=== PATIENT | male | born 1970 | race Caucasian/White ===

== ENCOUNTER 2016-08-08 00:56 | Emergency (ER) | payer BC, OTHER ==
[~2016-08-08] VITALS: Ht 180.3 cm; Wt 127.9 kg
[~2016-08-08 00:56] MED LIST: FLUO10CA48 PO
[2016-08-08 01:03] VITALS: TEMP 36.6; Ht 180.3 cm; Wt 127.9 kg
[2016-08-08] MEDS ORDERED: ASPIRIN 81 MG CHEW PO STA (01:25)
[2016-08-08 01:27] VITALS: O2SAT 97
[2016-08-08 01:32] LABS: BASO % 0.4 %; BASO ABS # 0.03 K/uL (0-0.2); COMPLETE YES; EOS % 1.9 %; HEMATOCRIT 43.7 % (42-52); IG% 0.1 %; LYMPH % 42.3 %; LYMPH ABS # 2.96 K/uL (1.2-3.4); MEAN CORPUSCULAR HEMOGLOBIN 29.8 pg (25-34); MEAN CORPUSCULAR HGB CONC 35.5 g/dl (32-36); MEAN PLATELET VOLUME 10.1 fL (7.4-10.4); MONO % 7.7 %; NEUT % 47.6 %; PLATELET COUNT 208 K/uL (130-400); WHITE BLOOD COUNT 6.99 K/uL (4.8-10.8)
[2016-08-08 01:42] LABS: BUN/CREATININE RATIO 12.7 (10-20); CALCIUM 9.2 mg/dl (8.5-10.1); CREATININE 1.5 mg/dl (0.60-1.40)
--- NOTE | 2016-08-08 04:08 | EMERGENCY ROOM VISIT NOTE ---
History First contact with patient: 01:07 Chief Complaint: CARDIAC ASSESSMENT Stated Complaint: TIGHTNESS IN CHEST,WEIRD FEELING IN RT ARM/SHOUDER Nursing Triage Summary: prior to arrival patient woke up with right sided chest tightness. patient was shoveling snow and also slept on right side but patient states this doest no feel like muscle soreness. pain began at 0030. History of Present Illness The patient is a 45 year old male who presents to the Emergency Room with complaints of chest pain that raised his right shoulder since 12:30 AM that woke him up out of sleep he was nauseous and sweaty with this. The pain is now resolved after being in the ER. He describes it as a funny feeling in his chest. His dad had a heart attack in his 70s. Patient smokes. He uses a vaporizer. Patient denies prior heart disease, hypertension, diabetes, high cholesterol. He does not routinely exercise. He does walk with no difficulties. Patient denies abdominal pain, dyspnea, leg pain or swelling, recent travel, vomiting, diarrhea, numbness, tingling. No recent illness. No injury to the area. Nothing makes the pain better or worse. It is now resolved. Review of Systems See HPI for pertinent positives & negatives. A total of 10 systems reviewed and were otherwise negative. Past Medical/Surgical History Kidney stones Social History Smoking Status: Current Some Day Smoker Drug Use: none Marital Status: Housing Status: lives with family Occupation Status: employed Current/Historical Medications Scheduled Fluoxetine (Prozac), 10 MG PO DAILY Allergies Coded Allergies: No Known Allergies (Unverified , 04/19/11) Physical Exam Vital Signs Date Time Temp Pulse Resp B/P Pulse Ox O2 Delivery O2 Flow Rate FiO2 08/08/16 02:30 55 20 113/68 97 Room Air 08/08/16 01:27 97 Room Air 08/08/16 01:27 97 Room Air 08/08/16 01:22 55 08/08/16 01:16 95 Room Air 08/08/16 01:03 36.6 61 18 136/85 97 Room Air Physical Exam VITALS: Vitals are noted on the nurse's note and reviewed by myself. Vital signs stable. GENERAL: Pleasant male, in no acute distress, nondiaphoretic, well-developed well-nourished. SKIN: The skin was without rashes, erythema, edema, or bruising. There is no tenting of the skin. Capillary reflex less than 2 seconds. HEAD: Normocephalic atraumatic. EARS: External auditory canals clear, tympanic membranes pearly cao without erythema or effusion bilaterally. EYES: Pupils equal round and reactive to light and accommodation. Conjunctivae without injection, sclerae without icterus. Extraocular movements intact. NOSE: Patent, turbinates without inflammation or discharge. MOUTH: Mucous membranes moist. Pharynx without erythema or exudate. Uvula midline. Airway patent. Tongue does not deviate. NECK: Supple without nuchal rigidity. No lymphadenopathy. No thyromegaly. Cervical spine is nontender. No JVD. HEART: Regular rate and rhythm without murmurs gallops or rubs. Chest nontender to palpation LUNGS: Clear to auscultation bilaterally without wheezes, rales or rhonchi. No dullness to percussion. No retractions or accessory muscle use. ABDOMEN: Positive bowel sounds x 4. Normal tympanic percussion. Soft, nontender, without masses or organomegaly. Manning sign negative. No guarding or rebound tenderness. MUSCULOSKELETAL: No muscle atrophy, erythema, or edema noted. NEURO: Patient was alert and oriented to person place and time. Normal sensation to light and sharp touch. No focal neurological deficits. Medical Decision & Procedures Laboratory Results 08/08/16 01:16 Red Blood Count 5.20, Mean Corpuscular Volume 84.0, Mean Corpuscular Hemoglobin 29.8, Mean Corpuscular Hemoglobin Concent 35.5, Mean Platelet Volume 10.1, Neutrophils (%) (Auto) 47.6, Lymphocytes (%) (Auto) 42.3, Monocytes (%) (Auto) 7.7, Eosinophils (%) (Auto) 1.9, Basophils (%) (Auto) 0.4, Neutrophils # (Auto) 3.32, Lymphocytes # (Auto) 2.96, Monocytes # (Auto) 0.54, Eosinophils # (Auto) 0.13, Basophils # (Auto) 0.03 08/08/16 01:16 Test 08/08/16 01:16 08/08/16 03:26 White Blood Count 6.99 K/uL (4.8-10.8) Red Blood Count 5.20 M/uL (4.7-6.1) Hemoglobin 15.5 g/dL (14.0-18.0) Hematocrit 43.7 % (42-52) Mean Corpuscular Volume 84.0 fL (80-100) Mean Corpuscular Hemoglobin 29.8 pg (25-34) Mean Corpuscular Hemoglobin Concent 35.5 g/dl (32-36) Platelet Count 208 K/uL (130-400) Mean Platelet Volume 10.1 fL (7.4-10.4) Neutrophils (%) (Auto) 47.6 % Lymphocytes (%) (Auto) 42.3 % Monocytes (%) (Auto) 7.7 % Eosinophils (%) (Auto) 1.9 % Basophils (%) (Auto) 0.4 % Neutrophils # (Auto) 3.32 K/uL (1.4-6.5) Lymphocytes # (Auto) 2.96 K/uL (1.2-3.4) Monocytes # (Auto) 0.54 K/uL (0.11-0.59) Eosinophils # (Auto) 0.13 K/uL (0-0.5) Basophils # (Auto) 0.03 K/uL (0-0.2) RDW Standard Deviation 41.7 fL (36.4-46.3) RDW Coefficient of Variation 13.5 % (11.5-14.5) Immature Granulocyte % (Auto) 0.1 % Immature Granulocyte # (Auto) 0.01 K/uL (0.00-0.02) Anion Gap 7.0 mmol/L (3-11) Est Creatinine Clear Calc Drug Dose 84.7 ml/min Estimated GFR () 64.2 Estimated GFR (Non- 55.4 BUN/Creatinine Ratio 12.7 (10-20) Calcium Level 9.2 mg/dl (8.5-10.1) Total Bilirubin 0.3 mg/dl (0.2-1) Direct Bilirubin 0.1 mg/dl (0-0.2) Aspartate Amino Transf (AST/SGOT) 16 U/L (15-37) Alanine Aminotransferase (ALT/SGPT) 34 U/L (12-78) Alkaline Phosphatase 59 U/L (45-117) Total Protein 7.2 gm/dl (6.4-8.2) Albumin 3.9 gm/dl (3.4-5.0) Lipase 489 U/L (73-393) Bedside Troponin I 0.000 ng/ml (0-0.045) Medications Administered Medications (Trade) Dose Ordered Sig/Bridget Route Start Time Stop Time Status Last Admin Dose Admin Aspirin (Aspirin Chew) 324 mg NOW STAT PO 08/08/16 01:25 08/08/16 01:27 DC 08/08/16 01:30 324 MG ED Course Prior records/ancillary studies reviewed. Triage Nursing notes reviewed. Additional history obtained from family The patient's history was concerning for chest pain. Differential diagnosis: Etiologies such as cardiac ischemia, aortic dissection, pulmonary embolism, pneumonia, pneumothorax, musculoskeletal, infections, pericarditis, myocarditis , esophageal rupture, gastrointestinal, as well as others were entertained. Physical examination: As above. ER treatment provided: Aspirin On reassessment the patient felt better. Diagnostic interpretation by me: The electrocardiogram was negative for pathologic change. Normal sinus, normal intervals, T wave inversion in lead 3, normal axis, rate of 55. Impression sinus bradycardia interpreted by myself The labs revealed 2 troponins that are negative 2 hours apart. Mildly elevated glucose. Elevated creatinine 1.5 Imaging studies: Chest x-ray with no acute consolidation or pneumothorax free air per my interpretation Exam and history seem consistent with precordial chest pain. Patient declined admission. He had 2 troponins that were negative 2 hours apart. Patient was strongly encouraged to cardiology this week for further evaluation and workup for his chest pain. He was informed that we cannot rule out a heart attack or heart disease by today's testing. He understands the risks involved. He was advised avoid strenuous activity and to see cardiology on Tuesday or here in the ER sooner for chest pain, further workup, worsening signs or symptoms or as needed.By the evaluation outlined above emergent etiologies such as aortic dissection, pulmonary embolism, pneumonia, pneumothorax, infections, pericarditis, myocarditis, gastrointestinal, as well as others were deemed relatively unlikely. The pt informed about the findings as listed above. All questions were answered and pleased with the treatment. Return instructions were outlined and the patient was discharged in stable condition. Referral: The patient was referred back to cardiology and primary care physician for follow-up in 2 to 3 days for a recheck of the current condition. Case reviewed with my attending Medical Decision As above Impression Primary Impression: Precordial chest pain Departure Information Dispostion Home / Self-Care Condition GOOD Referrals Jojo Bryant D.O. (PCP) Patient Instructions My [facility] Additional Instructions Recommend that you stop smoking and using the vaporizer. Ibuprofen(Motrin, Advil) may be used for fever or pain. Use 600mg every six hours as needed. Take with food. Avoid using more than 2400mg in a 24 hour period. Do not use 2400mg per day for more than three consecutive days without physician direction. Prolonged inappropriate use can lead to stomach upset or ulcers. (AND/OR) Acetaminophen(Tylenol) may be used for fever or pain. Use 1000mg every six hours as needed. Avoid using more than 3000mg in a 24 hour period. Rest and drink plenty of fluids as tolerated. Continue current medications. Avoid strenuous activities until cleared by your family care doctor. Return to the ER immediately for worsening or persistent chest pain, abdominal pain, vomiting, fevers, chest pains, difficulty breathing, worsening of your condition, or as needed. Follow up with your primary physician and cardiology in 2-3 days for a recheck of your current condition.
[2016-08-08 04:19] VITALS: BP 116/79; PULSE 56; O2SAT 98
--- NOTE | 2016-08-08 06:39 | DIAGNOSTIC IMAGING REPORT ---
CHEST ONE VIEW PORTABLE CLINICAL HISTORY: CHEST PAIN dyspnea COMPARISON STUDY: No previous studies for comparison. FINDINGS: Mild cardia megaly. Mild prominence of pulmonary vasculature. No focal infiltrate. IMPRESSION: Pulmonary vascular congestion. Electronically signed by: Zachary Bueno M.D. 08/08/2016 6:38 AM Dictated Date/Time: 08/08/2016 6:37 AM
== END 2016-08-08 04:16 | disposition home or self-care (01) ==
LOC: C.EDB 00:57
DX: R07.2 Precordial pain (principal); F17.200 Nicotine dependence, unspecified, uncomplicated; Z87.442 Personal history of urinary calculi

== ENCOUNTER 2017-08-04 15:50 | Emergency (ER) | payer OTHER ==
[~2017-08-04] VITALS: Ht 180.3 cm; Wt 127.0 kg
[2017-08-04 16:08] VITALS: Ht 180.3 cm; Wt 127.0 kg
--- NOTE | 2017-08-04 19:21 | DIAGNOSTIC IMAGING REPORT ---
LOWER EXT NONJOINT WITHOUT HISTORY: 46 years-old Male Left ankle/lower leg pain and abnormality/possible Achilles tear acute mid calf pain status post injury COMPARISON: None available TECHNIQUE: Multiplanar multisequence MRI of the left lower leg were obtained without the use of IV contrast. FINDINGS: There is a moderate degree of intramuscular edema with a feathery appearance within the distal aspect of the medial head gastrocnemius near the myotendinous junction nicely seen on image 8 of series 13 and image 19 of series 9. Mild edema seen tracks along the adjacent myofascial borders. No focal intramuscular fluid collection or intrinsic T1 hyperintensity identified. No discrete muscle tear identified. Imaged lateral head gastrocnemius and Soleus musculature appear unremarkable and intact. The plantaris tendon is not well seen. The Achilles tendon appears intact and is unremarkable. Trace fluid within the retrocalcaneal bursa. Study is not tailored to assess the intrinsic structures of the ankle. 6 mm osteochondral defect involves the medial talar dome, image 14 of series 12. Bone marrow edema is otherwise unremarkable without evidence of acute fracture. Imaged flexor and extensor tendons appear unremarkable. IMPRESSION: 1. Moderate intramuscular and perimuscular edema of the distal aspect medial head gastrocnemius is compatible with grade 1 or grade 2 muscle strain without identifiable intramuscular hematoma identified. 2. The Achilles tendon appears intact and unremarkable. 3. 6 mm osteochondral defect of the medial talar dome. 4. No acute fracture identified. The above report was generated using voice recognition software. It may contain grammatical, syntax or spelling errors. Electronically signed by: Girma Wynn M.D. 08/04/2017 7:20 PM Dictated Date/Time: 08/04/2017 6:54 PM
--- NOTE | 2017-08-04 19:38 | EMERGENCY ROOM VISIT NOTE ---
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 The patient states that he was out hiking today while at work and felt a pop in his right calf. Since that time he has been unable to bear weight on the right leg secondary to pain. He also states he can dorsiflex his foot. The patient admits that he had a prior right Achilles rupture 8 years ago. At that time he was seen by [facility] at [place]. REVIEW OF SYSTEMS: 6 system review was performed and was negative unless stated otherwise in history of present illness. PMH: No prior significant ankle injury. Prior right Achilles tendon rupture SOCIAL HISTORY: Patient lives at home. PHYSICAL EXAM: Vital Signs: Were reviewed reviewed Nurse's notes. GENERAL: 46- year-old white male appears in no acute distress. MENTAL STATUS: Alert, oriented, and cooperative. RIGHT ANKLE/FOOT: No gross bony deformity noted. The inferior aspect of the Achilles tendon appears intact. There is a palpable lump mid calf which is tender to palpation. The patient can only partially dorsiflex his foot. EMERGENCY DEPARTMENT COURSE: The patient was evaluated. MRI of the right ankle was ordered and interpreted by the radiologist DIAGNOSTICS:LOWER EXT NONJOINT WITHOUT HISTORY: 46 years-old Male Left ankle/lower leg pain and abnormality/possible Achilles tear acute mid calf pain status post injury COMPARISON: None available TECHNIQUE: Multiplanar multisequence MRI of the left lower leg were obtained without the use of IV contrast. FINDINGS: There is a moderate degree of intramuscular edema with a feathery appearance within the distal aspect of the medial head gastrocnemius near the myotendinous junction nicely seen on image 8 of series 13 and image 19 of series 9. Mild edema seen tracks along the adjacent myofascial borders. No focal intramuscular fluid collection or intrinsic T1 hyperintensity identified. No discrete muscle tear identified. Imaged lateral head gastrocnemius and Soleus musculature appear unremarkable and intact. The plantaris tendon is not well seen. The Achilles tendon appears intact and is unremarkable. Trace fluid within the retrocalcaneal bursa. Study is not tailored to assess the intrinsic structures of the ankle. 6 mm osteochondral defect involves the medial talar dome, image 14 of series 12. Bone marrow edema is otherwise unremarkable without evidence of acute fracture. Imaged flexor and extensor tendons appear unremarkable. IMPRESSION: 1. Moderate intramuscular and perimuscular edema of the distal aspect medial head gastrocnemius is compatible with grade 1 or grade 2 muscle strain without identifiable intramuscular hematoma identified. 2. The Achilles tendon appears intact and unremarkable. 3. 6 mm osteochondral defect of the medial talar dome. 4. No acute fracture identified. The above report was generated using voice recognition software. It may contain grammatical, syntax or spelling errors. Electronically signed by: Girma Wynn M.D. 08/04/2017 7:20 PM The patient was informed of the findings. The patient was placed in a walking boot and given crutches. The patient was discharged home in stable condition. The patient was offered prescription pain medication but declined. DIAGNOSIS: Muscle strain left lower leg DISCHARGE INSTRUCTIONS: Ice and elevation for 2 days, avoid weight bearing, wear the walking boot and use crutches to aid in ambulation if necessary. Ibuprofen every 6 hours as needed for pain. If symptoms are not improving in 3- 4 days, follow-up with your Workmen's Comp. physician for reevaluation Current/Historical Medications No Active Prescriptions or Reported Meds Allergies Coded Allergies: No Known Allergies (Unverified , 08/04/17) Vital Signs Date Time Temp Pulse Resp B/P (MAP) Pulse Ox O2 Delivery O2 Flow Rate FiO2 08/04/17 16:08 37.0 90 18 146/81 94 Room Air Departure Information Prescriptions No Active Prescriptions or Reported Meds Referrals No Doctor, Assigned (PCP) Patient Instructions [facility]
[2017-08-04 20:03] VITALS: BP 146/81; PULSE 90; TEMP 37; O2SAT 94
== END 2017-08-04 20:05 | disposition home or self-care (01) ==
LOC: C.EDB 15:51 → C.EDD 20:05
DX: S86.901A Unspecified injury of unspecified muscle(s) and tendon(s) at lower leg level, right leg, initial encounter (principal); X50.1XXA Overexertion from prolonged static or awkward postures, initial encounter; Y92.821 Forest as the place of occurrence of the external cause; Y93.01 Activity, walking, marching and hiking; Y99.0 Civilian activity done for income or pay